=== PATIENT | female | born 1985 | race American Indian/Alaskan Native ===

== ENCOUNTER 2022-02-23 06:12 | Inpatient (IN) | payer BC ==
--- NOTE | 2022-02-22 13:02 | Anesthesia Consultation ---
Anesthesia Consult and Med Hx Date of service: 02/23/22 - Airway Anesthetic Teeth Evaluation: Good ROM Head & Neck: Adequate Mental/Hyoid Distance: Adequate Mallampati Class: Class II Intubation Access Assessment: Good - Pulmonary Exam CTA: Yes - Cardiac Exam Cardiac Exam: No Murmur - Pre-Operative Health Status ASA Pre-Surgery Classification: ASA2 Proposed Anesthetic Plan: General Nerve Block: TAP - Pulmonary Hx Smoking: Yes - Central Nervous System Hx Psychiatric Problems: Yes - Hematic Hx Anemia: Yes - Other Systems Hx Alcohol Use: Yes (Beer every other day) Hx Substance Use: Yes (Marijuana occas) Hx Cancer: No
[2022-02-22 13:22] LABS: Eosinophils # (Auto) 0.1 K/mm3 (0.0-0.4); Eosinophils % (Auto) 2.3 % (0.0-4.3); Hematocrit 31.2 % (30.3-42.9); Lymphocytes # (Auto) 1.3 K/mm3 (1.2-5.4); Lymphocytes % (Auto) 41.4 % (13.4-35.0); Mean Corpuscular HGB Conc 32 % (30-34); Mean Corpuscular Volume 74 fl (79-97); Monocytes # (Auto) 0.2 K/mm3 (0.0-0.8); Monocytes % (Auto) 6.3 % (0.0-7.3); Platelet Count 282 K/mm3 (140-440); Red Blood Count 4.24 M/mm3 (3.65-5.03); Red Cell Distribution Width 15.3 % (13.2-15.2)
[2022-02-23] MEDS ORDERED: BACTERIOSTATIC SODIUM CHLORIDE 0.9% 30 ML VIAL INFILTRATI ONE (06:36)
[2022-02-23] MEDS ORDERED: ceFAZolin/Water 2 GM/20 ML 2 GM/20 ML SYRINGE IV ONE (06:36)
[2022-02-23] MEDS ORDERED: BUPIVACAINE/PF (0.5%) 5 MG/1 ML 30 ML VIAL INFILTRATI ONE (06:39)
[2022-02-23] MEDS ORDERED: LIDOCAINE (1%) 10 MG/1 ML VIAL 20 ML MDV INFILTRATI NR (07:00)
[2022-02-23] MEDS ORDERED: fentaNYL 100 MCG/2 ML INJ IV NR (07:00)
[2022-02-23] MEDS ORDERED: MIDAZOLAM 2 MG/2 ML INJ IV NR (07:00)
[2022-02-23] MEDS ORDERED: LACTATED RINGERS 1,000 ML IV SCH (07:00)
[2022-02-23] MEDS ORDERED: CELECOXIB 200 MG CAP PO NR (07:00)
[2022-02-23] MEDS ORDERED: GABAPENTIN 300 MG CAP PO NR (07:00)
[2022-02-23] MEDS ORDERED: BUPIVACAINE/PF (0.5%) 5 MG/1 ML 10 ML VIAL INFILTRATI ONE ×2 (07:21→07:42)
--- NOTE | 2022-02-23 07:35 | History and Physical Report ---
History of Present Illness Date of examination: 02/23/22 Date of admission: 02/23/22 06:12 Chief complaint: uterine fibroids History of present illness: 36y/o G0 with multiple uterine fibroids and menorrhagia. She complains of constant pelvic pressure. Physical exam demonstrates a markedly enlarged uterus palpable above her umbilicus. She has elected for definitive surgical management. Past History Past Medical History: other (uterine fibroids) Past Surgical History: no surgical history Social history: single - Obstetrical History : 0 Para: 0 Hx # Term Pregnancies: 0 Number of Pregnancies: 0 Spontaneous Abortions: 0 Induced : 0 Number of Living Children: 0 Medications and Allergies Allergies Allergy/AdvReac Type Severity Reaction Status Date / Time nectarine Allergy Itchy Verified 02/14/22 16:20 throat peach Allergy Itchy Verified 02/14/22 16:20 throat black [place] ros[place] Allergy Itchy Uncoded 02/14/22 16:20 throat Home Medications Medication Instructions Recorded Confirmed Last Taken Type No Known Home Medications [No 02/14/22 02/14/22 Unknown History Reported Home Medications] Active Meds: Active Medications Bupivacaine HCl (Bupivacaine/Pf (0.5%) 5 Mg/1 Ml 10 Ml Vial) 20 ml INFILTRATI PREOP NR Stop: 02/23/22 23:59 Celecoxib (Celecoxib 200 Mg Cap) 200 mg PO PREOP NR Stop: 02/23/22 23:59 Last Admin: 02/23/22 07:00 Dose: 200 mg Fentanyl (Fentanyl 100 Mcg/2 Ml Inj) 100 mcg IV ONCE NR Stop: 02/23/22 23:59 Gabapentin (Gabapentin 300 Mg Cap) 300 mg PO PREOP NR Stop: 02/23/22 23:59 Last Admin: 02/23/22 07:00 Dose: 300 mg Lactated Ringer's (Lactated Ringers) 1,000 mls @ 125 mls/hr IV DIRECT JELANI Last Admin: 02/23/22 07:10 Dose: 125 mls/hr Lidocaine (Lidocaine (1%) 10 Mg/1 Ml Vial 20 Ml Mdv) 10 ml INFILTRATI PREOP NR Stop: 02/23/22 23:59 Midazolam HCl (Midazolam 2 Mg/2 Ml Inj) 2 mg IV PREOP NR Stop: 02/23/22 23:59 Review of Systems All systems: negative Genitourinary: vaginal bleeding, pelvic pain - Vital Signs Vital signs: Vital Signs Temp Pulse Resp BP Pulse Ox 98.9 F 65 16 118/83 95 02/22/22 12:15 02/22/22 12:15 02/22/22 12:15 02/22/22 12:15 02/22/22 12:15 Temp Pulse Resp BP Pulse Ox 98.9 F 65 16 118/83 95 02/22/22 12:15 02/22/22 12:15 02/22/22 12:15 02/22/22 12:15 02/22/22 12:15 - Physical Exam Breasts: Positive: deferred Cardiovascular: Regular rate Lungs: Positive: Clear to auscultation Abdomen: Positive: other (central pelvic mass palpable above the umbilicus) Uterus: Positive: enlarged Results Result Diagrams: 02/22/22 Unknown Abnormal lab results 02/22/22 Range/Units Unknown WBC 3.2 L (4.5-11.0) K/mm3 Hgb 10.0 L (10.1-14.3) gm/dl MCV 74 L (79-97) fl MCH 24 L (28-32) pg RDW 15.3 H (13.2-15.2) % Lymph % (Auto) 41.4 H (13.4-35.0) % Seg Neutrophils # 1.6 L (1.8-7.7) K/mm3 All other labs normal. Assessment and Plan - Patient Problems (1) Uterine fibroid Current Visit: Yes Status: Acute Plan to address problem: will proceed with a total abdominal hysterectomy (2) Menorrhagia Current Visit: Yes Status: Acute (3) Chronic iron deficiency anemia Current Visit: Yes Status: Acute
[2022-02-23] MEDS ORDERED: dexAMETHasone 20 MG/5 ML VIAL ONE (07:48)
[2022-02-23] MEDS ORDERED: ONDANSETRON 4 MG/2 ML INJ ONE (07:48)
[2022-02-23] MEDS ORDERED: LIDOCAINE MPF (2%) 20 MG/1 ML VIAL 5 ML ONE (07:48)
[2022-02-23] MEDS ORDERED: ePHEDrine SULFATE 50 MG/1 ML INJ ONE (07:49)
[2022-02-23] MEDS ORDERED: HYDROmorphone 1 MG/1 ML INJ ONE (07:49)
[2022-02-23] MEDS ORDERED: propofoL 200 MG/20 ML VIAL IV ONE (07:49)
[2022-02-23] MEDS ORDERED: ANTICOAGULANT SOD CITRATE SOLUTION MC ONE ×2 (07:56→08:52)
[2022-02-23] MEDS ORDERED: ceFAZolin/Water 2 GM/20 ML 2 GM/20 ML SYRINGE IV NR (08:00)
[2022-02-23] MEDS ORDERED: SODIUM CHLORIDE 0.9% IRR 1,500 ML BOTTLE IR ONE (08:52)
[2022-02-23] MEDS ORDERED: SUGAMMADEX SODIUM 200 MG/2 ML VIAL IV ONE (09:21)
[2022-02-23] MEDS ORDERED: ACETAMINOPHEN 325 MG TAB PO PRN (09:35)
--- NOTE | 2022-02-23 09:56 | Operative Report ---
Operative Report Operative Report: Date: February 23, 2022 Preoperative diagnosis: Symptomatic uterine fibroids; menorrhagia; iron deficiency anemia Postoperative diagnosis: Same as above Procedure: Total abdominal hysterectomy; bilateral salpingectomy Surgeon: Annamaria Plummer M.D. Business Dean: Jovanni Sultana Anesthesia: General tracheal anesthesia Estimated blood loss: 100 mL Urine output: 50 mL IV fluids: 800 mL Indication: 36-year-old G0 with a history of symptomatic uterine fibroids that has contributed to her iron deficiency anemia and menorrhagia. The patient elected to undergo definitive surgical management Pathology: Uterus, cervix, bilateral tubes Findings: Markedly enlarged fibroid uterus palpable above the umbilicus. Normal tubes and ovaries bilaterally. Procedure: The risk and benefits and indications of the procedure were reviewed with the patient and informed consent was obtained the patient was taken to the operating room. A timeout was performed that confirmed the patient's identity and the procedure to be performed. The patient was placed in supine position and given general anesthesia. The patient was prepped and draped in a normal sterile fashion. A vertical skin incision was made down to the layer of the fascia which was nicked in the midline and extended with the Bovie cautery. The rectus muscles off sharply. The rectus muscle in the midline and the peritoneum entered bluntly. The pelvis was examined with the following findings an enlarged fibroid uterus with multiple leiomyoma. The tubes and ovaries were normal in appearance.. The uterus was elevated out of the pelvis. The round ligaments on both sides were clamped transected with the Enseal device. The anterior leaf of the broad ligament was then incised along the bladder reflection to the midline from both sides the bladder was then gently dissected off the lower uterine segment and the cervix with a sponge stick. The tubo-ovarian ligament on both sides were coagulated and transected Hemostasis was assured. The uterine vessels were then skeletonized bilaterally coagulated and transected with the Enseal. The uterosacral ligaments were clamped similarly on both sides coagulated and transected. The corpus of the uterus was transected from the cervix with the Bovie cautery to improve visualization. A self-retaining retractor was placed and the bowel was displaced with warm laparotomy sponges. The cervix was elevated and the vesicouterine peritoneum was dissected off of the cervix. The Enseal was used to coagulate and transect the broad ligament attachment. Sharply curved clamps were placed below the level of the cervix and the cervix was amputated from the vaginal cuff. The vaginal cuff edges were closed with a [place] fixation stitch and interrupted [id number] stitches in the midline with 0 Vicryl. Attention was then turned to the fallopian tubes where the mesosalpinx was coagulated and transected with removal of the tubes bilaterally. The pelvis was then copiously irrigated with normal saline. Surgicel powder was applied to the surgical sites. All laparotomy sponges and instruments were then removed from the abdomen. A mass closure was performed incorporating the the fascia and rectus muscle with 0 PDS suture in a running fashion. The subcutaneous adipose tissue was reapproximated with 3-0 Vicryl. The skin was reapproximated with oh. Pressure dressing was applied to the incision. All sponge laps and needle counts were correct x 2. Patient was then successfully extubated. The patient was taken to the recovery room in stable condition.
[2022-02-23] MEDS ORDERED: HYDROmorphone 0.5 MG/0.5 ML INJ IV PRN (10:18)
[2022-02-23] MEDS ORDERED: ONDANSETRON 4 MG/2 ML INJ IV NR (10:18)
--- NOTE | 2022-02-23 10:36 | Anesthesia Day of Surgery ---
Anesthesia Day of Surgery - Day of Surgery Patient Examined: Yes Patient H&P Reviewed: Yes Patient is NPO: Yes
[2022-02-23] MEDS: HYDROmorphone 0.5 MG/0.5 ML INJ IV PRN ×2 (10:37→10:50)
--- NOTE | 2022-02-23 10:37 | Post Anesthesia Evaluation ---
- Post Anesthesia Evaluation Patient Participated: Yes Airway Patent: Yes Stable Respiratory Function: Yes Nausea/Vomiting: No Temp > 96.8F: Yes Pain Manageable: Yes Adequeate Hydration: Yes Anesthesia Complications: No
[2022-02-23] MEDS ORDERED: KETOROLAC 30 MG/1 ML INJ IV PRN (11:30)
[2022-02-23] MEDS ORDERED: ONDANSETRON 4 MG/2 ML INJ IV PRN (11:30)
[2022-02-23] MEDS ORDERED: MORPHINE 4 MG/1 ML INJ IV PRN (12:00)
[2022-02-23] MEDS ORDERED: MAGNESIUM HYDROXIDE (MOM) ORAL LIQD UDC PO PRN (12:00)
[2022-02-23] MEDS ORDERED: oxyCODONE /ACETAMINOPHEN 5-325MG TAB PO PRN (12:00)
[2022-02-23] MEDS: D5W/LACTATED RINGERS 1,000 ML IV SCH ×2 (12:40→20:39)
[2022-02-23] MEDS ORDERED: BUPIVACAINE/PF (0.5%) 5 MG/1 ML 10 ML VIAL INFILTRATI NR (14:00)
[2022-02-23] MEDS: IBUPROFEN 800 MG TAB PO PRN (20:46)
[2022-02-24] MEDS: oxyCODONE /ACETAMINOPHEN 5-325MG TAB PO PRN ×2 (01:51→15:27)
[2022-02-24] MEDS: D5W/LACTATED RINGERS 1,000 ML IV SCH (03:34)
[2022-02-24] MEDS: IBUPROFEN 800 MG TAB PO PRN (06:40)
--- NOTE | 2022-02-24 08:14 | Progress Note ---
Assessment and Plan - Patient Problems (1) Uterine fibroid Current Visit: Yes Status: Acute Plan to address problem: Routine postoperative care Patient doing well Consider discharge home if patient tolerates diet (2) Menorrhagia Current Visit: Yes Status: Acute (3) Chronic iron deficiency anemia Current Visit: Yes Status: Acute Subjective - Subjective Date of service: 02/24/22 Interval history: Patient is postop day #1 status post a total abdominal hysterectomy. The patient is doing well. Her Boo has been removed but she has not voided as of yet. She denies any nausea vomiting. She is tolerating her clear diet without complication. The details of her surgery were discussed. Patient reports: appetite normal, pain well controlled Objective - Vital Signs Latest vital signs: Vital Signs Temp Pulse Resp BP BP Pulse Ox 02/24/22 05:08 98.4 F 64 18 115/72 98 02/24/22 00:15 98.7 F 71 16 121/79 100 02/23/22 20:46 20 02/23/22 20:37 97.9 F 57 L 16 128/77 100 02/23/22 19:30 100 02/23/22 16:15 97.9 F 70 20 122/76 100 02/23/22 13:05 16 100 02/23/22 11:15 89 16 131/77 100 02/23/22 11:00 87 16 132/84 100 02/23/22 10:45 97.7 F 94 H 18 138/90 99 02/23/22 10:30 85 18 133/91 100 02/23/22 10:20 83 16 131/90 100 02/23/22 10:15 84 16 140/92 100 02/23/22 10:11 97.3 F L 87 16 136/95 100 Intake and Output 02/23/22 02/24/22 02/24/22 22:59 06:59 14:59 Intake Total 6016.322 0821.583 Output Total 2500 2400 Balance -1142.083 -935.417 Intake: IV 997.917 864.583 D5lr 1,000 ml @ 125 mls/ 997.917 864.583 hr IV DIRECT JELANI Rx#: [id number] Oral 360 Intake, Free Water 600 Output: Urine 2500 2400 Indwelling Catheter 1600 2100 Uretheral (Boo) 900 300 Void 0 Other: Total, Intake Amount 240 Total, Output Amount 900 300 Voiding Method Indwelling Catheter # Voids Void 0 Weight 79.379 kg - Exam Incision: Present: dressed - Labs Labs: Abnormal lab results 02/24/22 Range/Units 06:18 Hgb 9.0 L (10.1-14.3) gm/dl Hct 28.0 L (30.3-42.9) %
--- NOTE | 2022-02-24 13:24 | Post Anesthesia Evaluation ---
- Post Anesthesia Evaluation Patient Participated: Yes Airway Patent: Yes Stable Respiratory Function: Yes Nausea/Vomiting: No Temp > 96.8F: Yes Pain Manageable: Yes Adequeate Hydration: Yes Anesthesia Complications: No Block Receding Appropriately: Yes Patient on Ventilator: No
[2022-02-24 16:30] VITALS: BP 121/74
== END 2022-02-24 19:00 | disposition home or self-care (01) | DRG 743 ==
LOC: 3A 06:12 → OB 10:09 → 3A 11:07 → OB 11:08
PROVIDERS: ADMIT Obstetrics & Gynecology; ATTEND Obstetrics & Gynecology
PROC: 0UT90ZZ Resection of Uterus, Open Approach (ICD-10-PCS; principal; 2022-02-23)
PROC: 0UT70ZZ Resection of Bilateral Fallopian Tubes, Open Approach (ICD-10-PCS; 2022-02-23)
DX: D25.9 Leiomyoma of uterus, unspecified (principal); Z20.822 Contact with and (suspected) exposure to COVID-19; N92.0 Excessive and frequent menstruation with regular cycle; D50.9 Iron deficiency anemia, unspecified; Z87.891 Personal history of nicotine dependence; Z91.018 Allergy to other foods; Z88.8 Allergy status to other drugs, medicaments and biological substances
CPT/HCPCS: 36415; 64450; 84703; 85014; 85018; 85025; 86850; 86900; 86901; 88302; 88307; G0378; J3490; J7060; J0690; J1100; J1170; J1885; J2250; J2405; J2704; J3010; J7120; J7121; U0003